=== PATIENT | male | born 1995 | race Caucasian/White ===

== ENCOUNTER 2017-05-14 16:25 | Emergency (ER) | payer BC ==
[~2017-05-14] VITALS: Ht 180.3 cm; Wt 101.0 kg
[2017-05-14 16:44] VITALS: TEMP 36.8; Ht 180.3 cm; Wt 101.0 kg
[2017-05-14] MEDS ORDERED: DEXAMETHASONE SOD INJ 4 MG/ML VIAL IV STA (17:07)
[2017-05-14] MEDS ORDERED: DiphenhydrAMINE HCL 50 MG/ML VIAL IV STA (17:07)
[2017-05-14] MEDS ORDERED: PROCHLORPERAZINE 5 MG/ML 2 ML VIAL IV STA (17:07)
[2017-05-14] MEDS ORDERED: KETOROLAC TROMETHAMINE 30 MG/ML VIAL IV STA (17:07)
[2017-05-14] MEDS ORDERED: SODIUM CHLORIDE 0.9% 1000ML 1,000 ML IV ONE (17:15)
--- NOTE | 2017-05-14 17:41 | EMERGENCY ROOM VISIT NOTE ---
History First contact with patient: 16:59 Chief Complaint: HEADACHE Stated Complaint: MIGRAINE History of Present Illness The patient is a 21 year old male who presents to the Emergency Room with complaints of a migraine headache that started today at noon. The pain is in the frontal aspect of his head. He has tried Tylenol and ibuprofen with minimal relief. Patient also reports some numbness and tingling on his left side. He also reports decreased vision in the left eye. This seems slightly worse than his typical migraines. He denies any recent illnesses. No fever or chills. No sinus congestion or sore throat. He did have 2 episodes of vomiting. He does also describe photophobia and phonophobia. Review of Systems 10 system review performed and negative unless noted in HPI or below Past Medical/Surgical History Medical Problems: (1) Contusion (2) No Known Active Medical Problems (3) No significant medical problems Family History FH: HTN (hypertension) FH: cancer FH: diabetes mellitus FH: heart disease Social History Smoking Status: Never Smoker Marital Status: single Housing Status: lives with family Occupation Status: student Current/Historical Medications Scheduled Multiple Vitamin (Multi Vitamin), 1 TAB PO DAILY Scheduled PRN Acetaminophen (Tylenol), 1,000 MG PO Q6H PRN for Pain or Fever Epinephrine (Epipen), 0.3 MG IM UD PRN for Allergic Reaction Ibuprofen (Advil), 400-600 MG PO Q6H PRN for Pain or Fever Physical Exam Vital Signs Date Time Temp Pulse Resp B/P (MAP) Pulse Ox O2 Delivery O2 Flow Rate FiO2 05/14/17 20:05 118 16 141/76 97 05/14/17 17:54 99 Room Air 05/14/17 16:44 36.8 100 16 146/93 99 Room Air Physical Exam VITALS: Vitals are noted on the nurse's note and reviewed by myself. Vital signs stable. GENERAL: 21-year-old male, in moderate discomfort,, SKIN: The skin was without rashes, erythema, edema, or bruising. HEAD: Normocephalic atraumatic. EARS: External auditory canals clear, tympanic membranes pearly pérez without erythema or effusion bilaterally. EYES: Pupils equal round and reactive to light and accommodation. Conjunctivae without injection, sclerae without icterus. Extraocular movements intact. MOUTH: Mucous membranes slightly dry tonsils are not enlarged. Pharynx without erythema or exudate. Uvula midline. Airway patent. Tongue does not deviate. NECK: Supple without nuchal rigidity. No lymphadenopathy. Cervical spine is nontender. No JVD. HEART: Regular rate and rhythm without murmurs gallops or rubs. LUNGS: Clear to auscultation bilaterally without wheezes, rales or rhonchi. No accessory muscle use. MUSCULOSKELETAL: No muscle atrophy, erythema, or edema noted. Strength 5/5 throughout. NEURO: Patient was alert and oriented to person place and time. Negative Romberg. Cerebellar function intact. Normal sensation to touch. No focal neurological deficits. Medical Decision & Procedures Laboratory Results 05/14/17 17:35 Red Blood Count 5.39, Mean Corpuscular Volume 90.9, Mean Corpuscular Hemoglobin 32.3, Mean Corpuscular Hemoglobin Concent 35.5, Mean Platelet Volume 10.7, Neutrophils (%) (Auto) 88.8, Lymphocytes (%) (Auto) 7.6, Monocytes (%) (Auto) 2.9, Eosinophils (%) (Auto) 0.3, Basophils (%) (Auto) 0.1, Neutrophils # (Auto) 10.24, Lymphocytes # (Auto) 0.88, Monocytes # (Auto) 0.34, Eosinophils # (Auto) 0.03, Basophils # (Auto) 0.01 05/14/17 17:35 Test 05/14/17 17:35 White Blood Count 11.53 K/uL (4.8-10.8) Red Blood Count 5.39 M/uL (4.7-6.1) Hemoglobin 17.4 g/dL (14.0-18.0) Hematocrit 49.0 % (42-52) Mean Corpuscular Volume 90.9 fL (80-100) Mean Corpuscular Hemoglobin 32.3 pg (25-34) Mean Corpuscular Hemoglobin Concent 35.5 g/dl (32-36) Platelet Count 212 K/uL (130-400) Mean Platelet Volume 10.7 fL (7.4-10.4) Neutrophils (%) (Auto) 88.8 % Lymphocytes (%) (Auto) 7.6 % Monocytes (%) (Auto) 2.9 % Eosinophils (%) (Auto) 0.3 % Basophils (%) (Auto) 0.1 % Neutrophils # (Auto) 10.24 K/uL (1.4-6.5) Lymphocytes # (Auto) 0.88 K/uL (1.2-3.4) Monocytes # (Auto) 0.34 K/uL (0.11-0.59) Eosinophils # (Auto) 0.03 K/uL (0-0.5) Basophils # (Auto) 0.01 K/uL (0-0.2) RDW Standard Deviation 43.4 fL (36.4-46.3) RDW Coefficient of Variation 13.1 % (11.5-14.5) Immature Granulocyte % (Auto) 0.3 % Immature Granulocyte # (Auto) 0.03 K/uL (0.00-0.02) Anion Gap 9.0 mmol/L (3-11) Est Creatinine Clear Calc Drug Dose 138.4 ml/min Estimated GFR () 120.6 Estimated GFR (Non- 104.1 BUN/Creatinine Ratio 6.7 (10-20) Calcium Level 9.9 mg/dl (8.5-10.1) Medications Administered Medications (Trade) Dose Ordered Sig/Roz Route Start Time Stop Time Status Last Admin Dose Admin Dexamethasone Sodium Phosphate (Decadron Inj) 10 mg NOW STAT IV 05/14/17 17:07 05/14/17 17:10 DC 05/14/17 17:50 10 MG Prochlorperazine Edisylate (Compazine Inj) 10 mg NOW STAT IV 05/14/17 17:07 05/14/17 17:10 DC 05/14/17 17:49 10 MG Diphenhydramine HCl (Benadryl Inj) 25 mg NOW STAT IV 05/14/17 17:07 05/14/17 17:10 DC 05/14/17 17:50 25 MG Ketorolac Tromethamine (Toradol Inj) 30 mg NOW STAT IV 05/14/17 17:07 05/14/17 17:10 DC 05/14/17 17:50 30 MG Sodium Chloride 1,000 ml @ 999 mls/hr Q1H1M ONCE IV 05/14/17 17:15 05/14/17 18:15 DC 05/14/17 17:49 999 MLS/HR Potassium Chloride (Klor-Con M10) 60 meq NOW STAT PO 3/8/18 18:44 05/14/17 18:45 DC 05/14/17 18:57 60 MEQ Promethazine HCl ([facility]gan [facility] PO 05/14/17 19:45 05/14/17 19:46 DC 05/14/17 20:04 1 HOMEPACK ED Course Patient was seen and examined Vital signs including blood pressure were reviewed medications list was verified with patient Labs were obtained, and a saline lock was established The patient was medicated with Toradol 30 mg, Benadryl 25 mg, Compazine 10 mg and Decadron 10 mg IV. He was hydrated with 1 L of normal saline. The patient was reevaluated and feeling much better. We thoroughly discussed the results of his workup. He was requesting to be discharged home. The patient was given 1 dose of potassium 60 mEq by mouth I reviewed discharge instructions the patient. They voiced understanding and had no further questions. Medical Decision Differential includes: Acute intracranial bleed, trauma, meningitis, encephalitis, increased intracranial pressure, mass or mass effect, facial or dental infection, temporal arteritis, CVA, TIA, acute hypertensive emergency, sinusitis, carbon monoxide exposure. This patient is a 21-year-old male presents to emergency department with complaints of a severe migraine headache slightly worse than his typical migraine headaches. On exam, he was uncomfortable but neurologically intact. No nuchal rigidity. No fever. The patient initially refused a CT and lab work. I was able to convince him to at least get lab work. His labs reveal mild leukocytosis. I believe this is likely a stress response as the patient does not have any fever or infectious symptoms. The patient had excellent symptomatic relief in the emergency department. His potassium was slightly low. This was repleted prior to discharge. The patient was advised to follow closely with the primary care physician. He was given a home pack of Phenergan for nausea. He agrees to return to the emergency department with any new or worsening symptoms. This chart was completed in part utilizing [employer] Speech Voice Recognition software. Attempts were made to minimize the grammatical errors, random word insertions, pronoun errors and incomplete sentences. Any formal questions or concerns about the content, text or information contained within the body of this dictation should be directly addressed to the provider for clarification. Medication Reconcilliation Current Medication List: was personally reviewed by me Blood Pressure Screening Patient's blood pressure: Elevated blood pressure Impression Primary Impression: Migraine Departure Information Dispostion Home / Self-Care Condition GOOD Referrals No Doctor, Assigned (PCP) Patient Instructions My [facility] Additional Instructions You were evaluated in the emergency department for a severe headache and vomiting. This is likely due to a migraine. Please try to stay well-hydrated. Increase fluids over the next several days. I would recommend water and Gatorade Please take ibuprofen 600 mg every 6 hours as needed for headache Please take Phenergan 1 tab every 6 hours as needed for nausea Follow-up with your primary care physician for a recheck in the next 24-48 hours Do not hesitate to return to the emergency department with any new, worsening or concerning symptoms; especially, fever, persistent vomiting, sudden worsening of pain Work Instructions Return To Work: 1 day
[2017-05-14 17:51] LABS: BASO % 0.1 %; BASO ABS # 0.01 K/uL (0-0.2); EOS % 0.3 %; EOS ABS # 0.03 K/uL (0-0.5); HEMOGLOBIN 17.4 g/dL (14.0-18.0); IG# 0.03 K/uL (0.00-0.02); LYMPH % 7.6 %; LYMPH ABS # 0.88 K/uL (1.2-3.4); MEAN CELL VOLUME 90.9 fL (80-100); MEAN CORPUSCULAR HEMOGLOBIN 32.3 pg (25-34); MEAN CORPUSCULAR HGB CONC 35.5 g/dl (32-36); MEAN PLATELET VOLUME 10.7 fL (7.4-10.4); MONO % 2.9 %; MONO ABS # 0.34 K/uL (0.11-0.59); NEUT % 88.8 %; NEUT ABS # 10.24 K/uL (1.4-6.5); PLATELET COUNT 212 K/uL (130-400); RED CELL DISTRIBUTION WIDTH CV 13.1 % (11.5-14.5); RED CELL DISTRIBUTION WIDTH SD 43.4 fL (36.4-46.3); WHITE BLOOD COUNT 11.53 K/uL (4.8-10.8)
[2017-05-14 17:54] VITALS: O2SAT 99
[2017-05-14] MEDS ORDERED: IBUP-1050 PO (18:16)
[2017-05-14] MEDS ORDERED: EPP3/2 IM (18:16)
[2017-05-14] MEDS ORDERED: ACET-1256 PO (18:16)
[2017-05-14] MEDS ORDERED: MULT-1027 PO (18:16)
[2017-05-14 18:20] LABS: CALCIUM 9.9 mg/dl (8.5-10.1); CREATININE 1.03 mg/dl (0.60-1.40); POTASSIUM 3.1 mmol/L (3.5-5.1)
[2017-05-14] MEDS ORDERED: POTASSIUM CHLORIDE 10 MEQ TABCR PO STA (18:44)
[2017-05-14] MEDS ORDERED: PHENERGAN 25MG HOMEPACK PO ONE (19:45)
--- NOTE | 2017-05-14 19:54 | EMERGENCY ROOM VISIT NOTE ---
ED Visit Note First contact with patient: 16:59 The patient was seen and examined with Aundrea Centeno PA-C. I agree with the history, physical and findings. Please see the note for disposition and details. Patient has a 10 year history of headaches with similar visual and neurologic symptoms. He has not seen neurology yet. The patient was given referral to neurology. His symptoms are completely resolved with the medications administered here. He was given a Phenergan home pack and a work note. If he has any unusual symptoms, fever, stiff neck, or escalating issues he will come back to the emergency department for reevaluation. Patient and family declined imaging. He has no fever. He has no neck stiffness or meningeal findings. He did have a mild leukocytosis. This is likely due to his vomiting. I gave my usual and customary discussion regarding this issue.
[2017-05-14 20:05] VITALS: BP 141/76; PULSE 118; O2SAT 97
== END 2017-05-14 20:07 | disposition home or self-care (01) ==
LOC: C.EDB 16:27
DX: G43.909 Migraine, unspecified, not intractable, without status migrainosus (principal); Z82.49 Family history of ischemic heart disease and other diseases of the circulatory system; Z80.9 Family history of malignant neoplasm, unspecified; Z83.3 Family history of diabetes mellitus